=== PATIENT | female | born 1985 | race Caucasian/White ===

== ENCOUNTER 2021-02-02 16:23 | Emergency (ER) | payer BC, SELFPAY ==
[2021-02-02 16:38] VITALS: BP 125/87; PULSE 85; RESP 18; TEMP 36.7; O2SAT 98; BMI 27.8
--- NOTE | 2021-02-02 20:56 | ED_ITS ---
HPI - Headache General: Chief Complaint: Headache Stated Complaint: 30 WKS , H/A, EARS BLOCKED, GEN MALAISE Time Seen by Provider: 02/02/21 20:41 History of Present Illness: HPI Narrative: Complains about migrainous type headache started today. She has a history of migraines but has been a long time basically since she had gastric bypass surgery done. Says she has felt tired for the last couple weeks was just recently diagnosed with anemia with a hemoglobin 11.9 on lab work done on . Said her ears feel full light and sound is bothering her headache. MD elicited complaint: migraine Pertinent past history: migraines Onset (ago): hour(s) Onset description: gradually Quality & Timing: steady Exacerbating factors: none Context: occurred at rest Associated symptoms: Reports photophobia, sound sensitivity and other (30 weeks ); Deny chest pain, fever(s), nausea, rash or vomiting Treatments prior to arrival: acetaminophen Review of Systems Const: Denies: fever(s), chills or body aches Eyes: Denies: change in vision or blurry vision ENMT: Denies: throat pain or nasal congestion Card: Denies: chest pain or dyspnea on exertion Resp: Denies: dyspnea, productive cough or non-productive cough GI: Denies: abdominal pain, nausea or vomiting Musc: Denies: extremity pain Skin/Breast: Denies: rash Neuro: Reports: headache(s) Psych: Denies: anxiety or depression Fortunato/Lymph: Denies: easy bruising Physical Exam Const: COMMON NORMALS: no acute distress, average body habitus and patient oriented x3 HENMT: COMMON NORMALS: normocephalic HEAD & SCALP: normal to inspection and normocephalic FACE & SINUS: normal facial exam Eye: COMMON NORMALS: conjunctivae normal GENERAL EYE: appearance normal, both eyes and all related structures CONJUNCTIVA: Yes conjunctivae normal DIRECT OPHTHALMOSCOPY: Yes photophobia Neck/C-Spine: COMMON NORMALS: no JVD Chest: COMMONS NORMALS: normal inspection of the chest Resp: COMMON NORMALS: normal respiratory effort and clear to auscultation bilaterally AUSCULTATION: clear to auscultation bilaterally Cardio: COMMON NORMALS: no JVD, regular rate and regular rhythm RATE: regular rate RHYTHM: regular rhythm OTHER: No pedal edema noted GI: COMMON NORMALS: Normal to inspection, nondistended, normoactive bowel sounds present Extremity: COMMON NORMALS: normal to inspection and full ROM Neuro: COMMON NORMALS: patient oriented x3 and CN's II-XII intact bilaterally Course Vital Signs: Vital signs: Vital Signs Temperature 98.0 F 02/02/21 16:38 Pulse Rate 97 02/02/21 21:13 Respiratory Rate 14 02/02/21 21:13 Blood Pressure 104/76 02/02/21 21:13 Pulse Oximetry 97 02/02/21 21:13 MDM - Headache MDM Narrative: Medical decision making narrative: Discussed lab results and case with Dr. Muse patient is follow-up with provider on Tuesday. Patient is a gastric bypass patient. Patient has been having regular checkups with provider A1c is low on last lab patient had a hemoglobin 11.9 just a week ago. Patient says she just been eating mac & cheese through the . Has had good fluid intake. Discussed lab results proper diet with patient. Lab Data: Labs: Lab Results 02/02/21 02/02/21 02/02/21 Range/Units 21:05 21:10 21:10 WBC 11.4 H (4.0-10.0) 10^3/ uL RBC 4.02 L (4.1-5.3) 10^6/u L Hgb 12.7 (11.5-15.3) g/dL Hct 37.3 (37.0-47.0) % MCV 92.8 (81-99) fL MCH 31.6 (28.0-34.0) pg MCHC 34.0 (30.0-36.0) g/dL RDW 13.0 (12.1-15.1) % Plt Count 220 (130-400) 10^3/c mm MPV 9.3 (7.4-10.4) fL Neut % (Auto) 66.9 % Lymph % (Auto) 27.8 % [place] % (Auto) 3.9 % Eos % (Auto) 0.8 % Baso % (Auto) 0.2 % Neut # (Auto) 7.65 (1.8-7.7) 10^3/u L Lymph # (Auto) 3.2 (0.8-4.8) 10^3/u L [place] # (Auto) 0.5 (0.2-0.9) 10^3/u L Eos # (Auto) 0.1 (0.0-0.8) 10^3/u L Baso # (Auto) 0.0 (0.0-0.1) 10^3/u L Nucleated RBC % (a uto) 0 % Nucleated RBCs # 0.0 /100WBC Sodium 138 (136-145) mmol/L Potassium 3.2 L (3.5-5.1) mmol/L Chloride 103 (98-107) mmol/L Carbon Dioxide 24 (22-29) mmol/L Anion Gap 14.2 (5-19) BUN 9 (6-20) mg/dL Creatinine 0.4 L (0.5-0.9) mg/dL GFR Calculation 183.8 H (90-130) mL/min Glucose 137 H (65-115) mg/dL Calculated Osmolal ity 287 (285-295) mOsm/k g Calcium 9.3 (8.5-10.5) mg/dL Total Bilirubin 0.3 (0.15-1.2) mg/dL AST 10 (0-32) U/L ALT 10 (0-33) U/L Alkaline Phosphata se 71 (35-105) IU/L Total Protein 6.6 (6.6-8.7) g/dL Albumin 3.5 (3.5-5.2) g/dL Globulin 3.1 (1.3-4.6) g/dL Urine Color Yellow (Yellow) Urine Appearance Cloudy (CLEAR) Urine pH 5 (5-7) Ur Specific Gravit y 1.025 (1.005-1.030) Urine Protein Neg (Negative) Urine Glucose (UA) Norm (Normal) Urine Ketones 3+ H (Negative) Urine Blood Neg (Negative) Urine Nitrate Negative (Negative) Urine Bilirubin Neg (Negative) Urine Urobilinogen Norm (Negative) mg/dL Ur Leukocyte Zoe ase 1+ H (Negative) Urine RBC 5-10 H (0-2) /hpf Urine WBC 10-15 H (0-5) /hpf Ur Squamous Epith Cells 25-40 H (0-5) /hpf Amorphous Sediment Not Reportable Urine Bacteria 3+ H (NONE) /hpf Discharge Plan Discharge Patient Disposition: Home Clinical Impression: Hypokalemia, Urine ketones Migraine Qualifiers: Migraine type: without aura Status migrainosus presence: without status migrainosus Intractability: intractable Qualified Code(s): G43.019 - Migraine without aura, intractable, without status migrainosus UTI (urinary tract infection) Qualifiers: Urinary tract infection type: acute cystitis Hematuria presence: without hematuria Qualified Code(s): N30.00 - Acute cystitis without hematuria Condition: Stable Prescriptions: New K-Tab 20 mEq tablet extended release 20 meq PO DAILY Qty: 20 RF: 0 Macrobid 100 mg capsule 100 mg PO BID 5 Days Qty: 10 RF: 0 Discharge Orders: Discharge ED (Routine); Ordered 02/02/21 Ordered By: Chip Rae Referrals: Cyndi Messina DO [Primary Care Provider] - Discharge Diet: Usual diet Discharge Activity: Resume usual activity Patient Instructions: Urinary Tract Infection in Women (ED), Hypokalemia (ED) Activity Restrictions/Additional Instructions: Follow-up with medical provider as directed. Take medications as prescribed. Return to the ER or your medical provider if condition worsens. Please read and understand discharge instructions. If any questions ask please. Keep OB appointment with provider on Tuesday get labs rechecked. Increase carbohydrates in diet. Coding Level of Care Code ED Director Of Sales And Marketing for Chg Fwd Exam Comprehensive
[2021-02-02] MEDS: sodium chloride 0.9% 500 ML IV (21:06)
[2021-02-02] MEDS: acetaminophen 1,000 MG/100 ML PIGGYBACK 400 MG IV (21:07)
[2021-02-02 21:13] VITALS: BP 104/76; PULSE 97; RESP 14; O2SAT 97
[2021-02-02 21:25] LABS: Basophils % 0.2 %; Eosinophils # 0.1 10^3/uL (0.0-0.8); Eosinophils % 0.8 %; Hematocrit 37.3 % (37.0-47.0); Hemoglobin 12.7 g/dL (11.5-15.3); Lymphocytes # 3.2 10^3/uL (0.8-4.8); Lymphocytes % 27.8 %; Mean Corpuscular Hemoglobin 31.6 pg (28.0-34.0); Mean Corpuscular Volume 92.8 fL (81-99); Mean Platelet Volume 9.3 fL (7.4-10.4); Monocytes # 0.5 10^3/uL (0.2-0.9); Monocytes % 3.9 %; Neutrophils # 7.65 10^3/uL (1.8-7.7); Neutrophils % 66.9 %; Nucleated Red Blood Cells % 0 %; Platelet Count 220 10^3/cmm (130-400); Red Blood Count 4.02 10^6/uL (4.1-5.3); White Blood Count 11.4 10^3/uL (4.0-10.0)
[2021-02-02 21:29] LABS: Add Urine Microscopic? YES; Bilirubin Urine Neg (Negative); Blood Urine Neg (Negative); Glucose Urine UA Norm (Normal); Ketones Urine 3+ (Negative); Leukocyte Esterase Urine 1+ (Negative); Nitrate Urine Negative (Negative); Protein Urine Neg (Negative); Specific Gravity, Urine 1.025 (1.005-1.030); Urine Appearance Cloudy (CLEAR); Urine Color Yellow (Yellow); Urobilinogen Urine Norm (Negative); pH Urine 5 (5-7)
[2021-02-02 21:30] VITALS: BP 100/61; PULSE 64; RESP 14; O2SAT 99
[2021-02-02 21:30] LABS: Bacteria Urine 3+ /hpf; Squamous Epithelial Cell Urine 25-40 /hpf (0-5)
[2021-02-02 21:31] LABS: Add Urine Culture? No
--- NOTE | 2021-02-02 21:33 | PC.NURSE ---
FHT 152 on doppler
[2021-02-02 21:40] LABS: Alanine Aminotransferase 10 U/L (0-33); Albumin Level 3.5 g/dL (3.5-5.2); Alkaline Phosphatase 71 IU/L (35-105); Anion Gap 14.2 (5-19); Aspartate Amino Transferase 10 U/L (0-32); Blood Urea Nitrogen 9 mg/dL (6-20); Calcium 9.3 mg/dL (8.5-10.5); Carbon Dioxide 24 mmol/L (22-29); Chloride 103 mmol/L (98-107); Globulin 3.1 g/dL (1.3-4.6); Glomerular Filtration Rate 183.8 mL/min (90-130); Glucose 137 mg/dL (65-115); Osmolality Calculated 287 mOsm/kg (285-295); Potassium 3.2 mmol/L (3.5-5.1); Sodium 138 mmol/L (136-145); Total Bilirubin 0.3 mg/dL (0.15-1.2); Total Protein 6.6 g/dL (6.6-8.7)
[2021-02-02 22:00] VITALS: BP 106/72; PULSE 68; RESP 16; O2SAT 99
[2021-02-02] MEDS: potassium chloride ER 20 mEq Tablet PO (22:05)
[2021-02-02] MEDS: nitrofurantoin SR (BID) 100 mg Capsule PO (22:05)
[2021-02-02 22:12] VITALS: BP 102/72; PULSE 72; RESP 16; O2SAT 98
== END 2021-02-02 22:14 | disposition home or self-care (01) ==
PROVIDERS: Emergency Provider Nurse Practitioner Family; PCP Family Medicine
DX: G43.019 Migraine without aura, intractable, without status migrainosus (principal); N30.00 Acute cystitis without hematuria; E87.6 Hypokalemia
CPT/HCPCS: 80053; 81001; 85025; 96361; 96374; 99283; J7040

== ENCOUNTER 2021-04-08 19:59 | Outpatient (CLI) | payer BC, MEDICAID, SELFPAY ==
[2021-04-08 20:08] VITALS: BMI 30.4
[2021-04-08 20:15] VITALS: BP 125/76; PULSE 71; RESP 16; TEMP 36.1
[2021-04-08 21:00] VITALS: BP 103/61; PULSE 66
[2021-04-08 21:07] LABS: Nitrazine Paper, PH Negative
[2021-04-08 21:09] LABS: Basophils % 0.2 %; Eosinophils % 0.4 %; Hematocrit 36.1 % (37.0-47.0); Hemoglobin 12.5 g/dL (11.5-15.3); Lymphocytes # 3.1 10^3/uL (0.8-4.8); Mean Corpuscular HGB Conc 34.6 g/dL (30.0-36.0); Mean Corpuscular Hemoglobin 30.6 pg (28.0-34.0); Mean Corpuscular Volume 88.5 fL (81-99); Mean Platelet Volume 10.2 fL (7.4-10.4); Monocytes # 0.6 10^3/uL (0.2-0.9); Monocytes % 5.5 %; Neutrophils # 7.59 10^3/uL (1.8-7.7); Neutrophils % 66.6 %; Nucleated Red Blood Cells % 0 %; Platelet Count 226 10^3/cmm (130-400); Red Blood Count 4.08 10^6/uL (4.1-5.3); Red Cell Distribution Width 12.4 % (12.1-15.1); White Blood Count 11.4 10^3/uL (4.0-10.0)
[2021-04-08 21:20] VITALS: BP 101/64; PULSE 71
[2021-04-08 21:20] LABS: Urine Appearance Clear (CLEAR); Urine Color Yellow (Yellow); pH Urine 6 (5-7)
[2021-04-08 21:21] LABS: Add Urine Microscopic? YES; Bilirubin Urine Neg (Negative); Blood Urine Neg (Negative); Glucose Urine UA Norm (Normal); Ketones Urine 1+ (Negative); Leukocyte Esterase Urine 1+ (Negative); Nitrate Urine Negative (Negative); Protein Urine Neg (Negative); Urobilinogen Urine Norm (Negative)
[2021-04-08 21:22] LABS: Add Urine Culture? Yes; Bacteria Urine 2+ /hpf; Mucus Urine 2+ /hpf; Squamous Epithelial Cell Urine 0-4 /hpf (0-5)
[2021-04-08 21:26] LABS: Alanine Aminotransferase 6 U/L (0-33); Albumin Level 3.6 g/dL (3.5-5.2); Alkaline Phosphatase 166 IU/L (35-105); Anion Gap 15.9 (5-19); Aspartate Amino Transferase 11 U/L (0-32); Blood Urea Nitrogen 14 mg/dL (6-20); Calcium 8.8 mg/dL (8.5-10.5); Carbon Dioxide 21 mmol/L (22-29); Chloride 104 mmol/L (98-107); Globulin 2.8 g/dL (1.3-4.6); Glomerular Filtration Rate 115.1 mL/min (90-130); Glucose 93 mg/dL (65-115); Osmolality Calculated 284 mOsm/kg (285-295); Potassium 3.9 mmol/L (3.5-5.1); Sodium 137 mmol/L (136-145); Total Bilirubin 0.3 mg/dL (0.15-1.2); Total Protein 6.4 g/dL (6.6-8.7)
[2021-04-08 21:40] VITALS: BP 110/73; PULSE 67
[2021-04-08 22:25] VITALS: BP 110/73; PULSE 67; RESP 16; TEMP 36.1
== END 2021-04-08 22:25 | disposition home or self-care (01) ==
LOC: OPOB 20:06 → OBGYN 20:06
PROVIDERS: PCP Family Medicine; Visit Provider Family Medicine
DX: O26.899 Other specified pregnancy related conditions, unspecified trimester (principal); Z3A.00 Weeks of gestation of pregnancy not specified; N89.8 Other specified noninflammatory disorders of vagina
CPT/HCPCS: 36415; 59025; 80053; 81001; 83986; 85025; 87086; 99211

== ENCOUNTER → 2022-06-15 09:26 | Outpatient (BNVA) | payer BC, SELFPAY | PROVIDERS: PCP Family Medicine; Visit Provider Obstetrics & Gynecology | DX: Z36.87 Encounter for antenatal screening for uncertain dates (principal) | CPT/HCPCS: 76801 ==

== ENCOUNTER → 2022-06-21 11:50 | Outpatient (BNVA) | payer BC, SELFPAY | PROVIDERS: PCP Family Medicine; Visit Provider Obstetrics & Gynecology | DX: Z34.81 Encounter for supervision of other normal pregnancy, first trimester (principal) | CPT/HCPCS: 80307; 83036; 84315; 85027; 86762; 86803; 86850; 86900; 87086; 87340; 87491; 87591 ==

== ENCOUNTER → 2022-07-20 11:43 | Outpatient (BNVA) | payer BC, SELFPAY | PROVIDERS: PCP Family Medicine; Visit Provider Nurse Practitioner Women's Health | DX: Z34.80 Encounter for supervision of other normal pregnancy, unspecified trimester (principal) | CPT/HCPCS: 84315; 87086 ==

== ENCOUNTER 2022-07-29 09:25 | Outpatient (CLI) | payer BC, SELFPAY | END 2022-07-29 09:26 | disposition home or self-care (01) | PROVIDERS: PCP Family Medicine; Visit Provider Nurse Practitioner Women's Health | DX: O26.899 Other specified pregnancy related conditions, unspecified trimester (principal); R19.7 Diarrhea, unspecified | CPT/HCPCS: 87177; 87209 ==

== ENCOUNTER → 2022-08-16 13:31 | Outpatient (BNVA) | payer BC, SELFPAY | PROVIDERS: PCP Family Medicine; Visit Provider Obstetrics & Gynecology | DX: Z36.87 Encounter for antenatal screening for uncertain dates (principal) | CPT/HCPCS: 76805 ==

== ENCOUNTER → 2022-08-20 14:48 | Outpatient (BNVA) | payer BC, SELFPAY | PROVIDERS: PCP Family Medicine; Visit Provider Obstetrics & Gynecology | DX: O09.899 Supervision of other high risk pregnancies, unspecified trimester (principal); Z3A.00 Weeks of gestation of pregnancy not specified | CPT/HCPCS: 80053; 82607; 84315; 86592 ==

== ENCOUNTER → 2022-10-22 07:21 | Day surgery (SDC) | payer BC, MEDICAID, SELFPAY ==
[2022-10-22 07:38] VITALS: BP 114/71; PULSE 87; RESP 18; TEMP 36.3; O2SAT 99
[2022-10-22 09:37] VITALS: BP 114/71; PULSE 87; RESP 18; TEMP 36.3; O2SAT 99
== END ==
PROVIDERS: PCP Family Medicine; Visit Provider Family Medicine
DX: O36.0190 Maternal care for anti-D [Rh] antibodies, unspecified trimester, not applicable or unspecified (principal); Z3A.00 Weeks of gestation of pregnancy not specified; Z67.91 Unspecified blood type, Rh negative
CPT/HCPCS: 36415; 86850; 86900; 90384; 96372

== ENCOUNTER 2022-12-21 09:25 | Outpatient (CLI) | payer OTHER, BC, MEDICAID, SELFPAY ==
--- NOTE | 2022-12-21 09:35 | US_ITS ---
WS: [id number] LIMITED OBSTETRICAL ULTRASOUND HISTORY: FUNDAL HEIGHT LOW FOR DATES COMPARISON: 06/15/2022 and 08/16/2022 Presentation: Vertex. Cervix: Closed and normal length. Placenta: Posterior and fundal. Grade: 1 HEART: FHR of 147 BPM. measurements: BPD = 8.8 cm = 35w3d; 9th percentile HC = 32.6 cm = 36w6d; 9th percentile AC = 32.1 cm = 36w0d; 13th percentile FL = 7.1 cm = 36w4d; 17th percentile Shape of the head is mildly abnormal. There is a slightly biconcave deformity of the frontal bill americo. Referred to as a lemon sign. This can be seen with neural tube defects. This is less specific du ring late gestation. The skull shape was normal on 08/16/2022. Amniotic fluid: Qualitative amniotic fluid appears low. Single deepest pocket of 4.1 cm. No semiquant itative measurements performed. EFW: 2874 g; 34th percentile AGA by ultrasound: 36w2d JUVENAL by ultrasound: 01/16/2023 Based on the first trimester ultrasound the estimated gestational age is within 8 days. This may be a normally small for gestational age fetus. US/[place] [id number] IMPRESSION: 1. Single intrauterine gestation of 36 weeks 2 days with an EDC of 01/16/2023. 2. Estimated date of delivery is within 8 days of the first trimester determin ed JUVENAL. Biometry percentiles are low. BPD at the 9th percentile and abdominal c ircumference 13th percentile. 3. Qualitative amniotic fluid appears low. Recommend follow-up with semiquanti tative measurements (CHINTAN). Single deepest vertical pocket is 4.1 cm. Normal is greater than 5. 4. Biconcave frontal bones. Not evident on the anatomic screening survey. May be normal variant but this finding can be seen with neural tube defects.
== END 2022-12-21 09:26 | disposition home or self-care (01) ==
LOC: RAD 09:26
PROVIDERS: PCP Family Medicine; Visit Provider Family Medicine
DX: O26.843 Uterine size-date discrepancy, third trimester (principal); Z3A.36 36 weeks gestation of pregnancy
CPT/HCPCS: 76816

== ENCOUNTER 2022-12-25 22:49 | Outpatient (CLI) | payer OTHER, BC, MEDICAID, SELFPAY ==
[2022-12-25 22:45] VITALS: RESP 16; TEMP 36.2; BMI 31.6
[2022-12-25 22:58] VITALS: BP 129/87; PULSE 70
[2022-12-25 23:16] VITALS: BP 119/80; PULSE 87
[2022-12-25 23:31] VITALS: BP 116/81; PULSE 72
[2022-12-25 23:47] VITALS: BP 116/73; PULSE 67
[2022-12-26 00:15] VITALS: BP 116/73; PULSE 67; RESP 16; TEMP 36.2
== END 2022-12-26 00:15 | disposition home or self-care (01) ==
LOC: OPOB 22:50 → OBGYN 22:51
PROVIDERS: PCP Family Medicine; Visit Provider Family Medicine
DX: O36.8190 Decreased fetal movements, unspecified trimester, not applicable or unspecified (principal); Z3A.00 Weeks of gestation of pregnancy not specified; R10.2 Pelvic and perineal pain
CPT/HCPCS: 59025; 99211

== ENCOUNTER 2022-12-28 12:06 | Outpatient (CLI) | payer OTHER, BC, MEDICAID, SELFPAY ==
--- NOTE | 2022-12-28 12:13 | US_ITS ---
WS: [id number] ULTRASOUND OB LIMITED TECHNIQUE: Limited ultrasound examination of the fetus. CLINICAL INFORMATION: CHINTAN level COMPARISON: December 21, 2022 FINDINGS: Closed cervix measures 4.2 cm Single interuterine gestation. Placental location is posterior fundal. Placenta grade: 1 heart rate 144 BPM. Normal CHINTAN 8.8 cm. Largest single vertical pocket 2.8 cm Biophysical profile 8 out of 8. breathin movement: 2 tone: 2 Amniotic fluid: 2 US/US OB BPP wo NST [id number] IMPRESSION: Normal biophysical profile 8 out of 8
[2022-12-28 12:17] VITALS: BMI 31.7
[2022-12-28 12:23] VITALS: BP 124/81; PULSE 98
[2022-12-28 12:43] VITALS: BP 122/71; PULSE 80
[2022-12-28 12:49] VITALS: BP 122/71; PULSE 80; RESP 16; TEMP 36.2
== END 2022-12-28 13:00 | disposition home or self-care (01) ==
LOC: OPOB 12:07 → OBGYN 12:08
PROVIDERS: PCP Family Medicine; Visit Provider Family Medicine
DX: O26.899 Other specified pregnancy related conditions, unspecified trimester (principal); Z3A.00 Weeks of gestation of pregnancy not specified
CPT/HCPCS: 59025; 76819; 99211

== ENCOUNTER 2023-01-03 16:03 | Inpatient (IN) | payer BC, MEDICAID, SELFPAY ==
[2023-01-03] VITALS (43 sets, daily range): BP systolic 94–155; BP diastolic 51–108; PULSE 54–111; RESP 16–18; TEMP 35.7–36.7; O2SAT 83–100; BMI 31.4
[2023-01-03 16:22] LABS: Basophils % 0.1 %; Eosinophils % 0.2 %; Hematocrit 32.2 % (37.0-47.0); Hemoglobin 10.3 g/dL (11.5-15.3); Lymphocytes % 22.2 %; Mean Corpuscular Hemoglobin 25.8 pg (28.0-34.0); Mean Corpuscular Volume 80.7 fl (81-99); Mean Platelet Volume 10.2 fL (7.4-10.4); Monocytes # 0.9 10^3/uL (0.2-0.9); Monocytes % 6.3 %; Neutrophils # 9.61 10^3/uL (1.8-7.7); Neutrophils % 70.8 %; Nucleated Red Blood Cells % 0 %; Platelet Count 249 10^3/cmm (130-400); Red Blood Count 3.99 10^6/uL (4.1-5.3); Red Cell Distribution Width 13.2 % (12.1-15.1); White Blood Count 13.6 10^3/uL (4.0-10.0)
--- NOTE | 2023-01-03 16:45 | PM.OPHPUD ---
Labor & Delivery H&P Update Date of Procedure: January 03, 2023 Date H&P Performed: 01/03/23 Admission Diagnosis: IUP at 40 wks gestation Active labor Planned procedure: expectant management of active labor
--- NOTE | 2023-01-03 16:59 | ANES.PREANE2 ---
Pre-Anesthetic Assessment Height/Weight: Height 1.63 m Weight 83.007 kg Pulse BP 74 137/76 01/03/23 16:06 01/03/23 16:06 Preop Diagnosis: labor epidural Familial anesthetic complications: none Was Beta Mamta taken within 24 hours: N/A Was Clonidine taken within 24 hours: N/A Last Intake: 15:00 Social No alcohol and No tobacco Exam alert, oriented x 3, clear to auscultation bilaterally and regular rate & rhythm Airway Submandibular: within normal limits Cervical ROM: within normal limits Mallampati: Class II Dentition: full Pulmonary None reported CV/HEM None reported None reported Hepatic None reported GI Gastroesophageal Reflux Disease Metabolic None reported Musc/skel None reported Neuropsych None reported Anesthetic Plan ASA status: 2 Anesthesia: Regional (specify below) (epidural) Risk of > 500 ml blood loss (7ml/kg in children): No Medications/Allergies Home Medications Medication Instructions Recorded Confirmed Last Taken Type omeprazole 20 mg capsule,delayed 20 mg PO DAILY PRN Pain 06/21/22 12/28/22 12/28/22 History release prenat.vits,edel,oas-erbb-nrxrp 1 tab PO DAILY 06/21/22 12/28/22 12/28/22 History potassium chloride 20 mEq 20 meq PO DAILY PRN Pain 07/20/22 12/28/22 12/25/22 History tablet,extended release (K-Tab) ondansetron 4 mg disintegrating 4 mg PO Q6H PRN Nausea 10/22/22 12/28/22 12/28/22 History tablet Allergies Allergy/AdvReac Type Severity Reaction Status Date / Time aspirin Allergy Unknown Verified 12/25/22 23:49 latex Allergy ALGY-Hives Verified 12/25/22 23:49 NSAIDS (Non-Steroidal Allergy Unknown Verified 12/25/22 23:49 Anti-Inflamma Penicillins Allergy ALGY-Hives Verified 12/25/22 23:49 PFSH Anesthesia Surgical History H/O gastric bypass (06/14/19) 06/14/2019 H/O oral surgery wisdom teeth extraction Family History Grandmother Diabetes paternal and maternal Hyperlipidemia maternal and paternal Thyroid condition maternal Breast cancer maternal, 60's Colon cancer paternal, age onset unknown Mother Diabetes Hypertension Heart disease Grandfather Diabetes paternal Hyperlipidemia maternal Stroke maternal Father Hyperlipidemia Hypertension Sister Thyroid condition Denies family history of Ovarian cancer Clotting disorder Anesthesia complication Bleeding disorder Uterine cancer Social History Smoking and tobacco status: never smoked Female Reproductive History : 2 Data Anesthesia 01/03/23 16:00 Short CBC 01/03/23 Range/Units 16:00 WBC 13.6 H (4.0-10.0) 10^3/uL Hgb 10.3 L (11.5-15.3) g/dL Hct 32.2 L (37.0-47.0) % MCV 80.7 L (81-99) fl Plt Count 249 (130-400) 10^3/cmm Neut % (Auto) 70.8 % Neut # (Auto) 9.61 H (1.8-7.7) 10^3/uL Cardiac Studies: No Data to Display
--- NOTE | 2023-01-03 17:29 | ANES.PROC ---
Anesthesia Procedures Procedure/Date: 01/03/23 Epidural: Time Out Performed: Yes Consents Signed: Procedure Consent and NPO Consent Consent: requested by attending/covering physician, from patient, risks and benefits reviewed and patient agrees to proceed Lumbar Level: L3-L4 Epidural position: sitting Epidural procedure: sterile prep of area (betadine), 1% lidocaine to numb the area (3ml), 18 g needle, negative for paresthesia passed, neg for paresthesia, test dose given, 1.5% xylocaine 1:200k epi (3ml/2ml), 0.2% Ropivacaine bolus ml (5ml), placed PCEA, no systemic response, sterile dressing applied, L.U.D. no apparent complications and 0.2% Ropiavacaine @ mls/hr (13ml/hr)
[2023-01-03] MEDS: lactated ringers 1,000 ML 999 ML IV (17:30)
[2023-01-03] MEDS: oxytocin 30 UNIT/500 ML BAG IV (18:26)
--- NOTE | 2023-01-03 19:02 | P.PCNOB_ITS ---
Delivery Note: Date of delivery: January 03, 2023 Procedure: Normal spontaneous vaginal delivery Delivering Physician: Bobbi Bronson MD Estimated blood loss (mL): 200 Pre-Delivery Course: The mother had routine care at [facility]. Her was complicated by advanced maternal age and prior bariatric surgery. Due to her bariatric surgery she was unable to have the glucose tolerance test but she had a normal hemoglobin A1c. Other labs were within normal limits. Delivery: This is a 37-year-old G2, P1 at 40 weeks 0 days gestation who presented to labor and delivery in active labor. She received an epidural for pain management. She underwent artificial rupture of membranes with clear fluid. Rupture of membranes was approximately 1 hour prior to delivery. The patient's labor progressed well on its own and she had a normal spontaneous vaginal delivery of a viable female weight 2995 g, 6 pounds 10 ounces, Apgars 6 and 9 over an intact perineum. The infant was suctioned at delivery and placed on the mother's chest. The cord was clamped and cut. Cord blood was obtained. The placenta was delivered grossly intact and normal to inspection. There was a left vaginal laceration that was sutured using 3-0 chromic. Mother and were doing well after delivery. History History History 2 Term 1 0 Miscarriages/Ectopic 0 Living Children 1 Coding Level of Care Code Acute Code for Chg Fwd
[2023-01-03] MEDS: ibuprofen 800 mg tablet PO (22:31)
[2023-01-03] MEDS: benzocaine-menthol 78 gm Canister 1 SPRAY TOPICAL (22:31)
[2023-01-03] MEDS: lanolin oint 7 gm 1 APPLIC TOPICAL (22:31)
[2023-01-03] MEDS: acetaminophen 325 mg Tablet 650 MG PO (23:28)
[2023-01-04 05:15] VITALS: BP 144/76; PULSE 64; RESP 16; TEMP 36.8; O2SAT 100
[2023-01-04] MEDS: acetaminophen 325 mg Tablet 650 MG PO ×2 (06:31→12:21)
[2023-01-04 06:58] LABS: Hematocrit 33.1 % (37.0-47.0); Hemoglobin 10.6 g/dL (11.5-15.3); Mean Corpuscular Hemoglobin 26.2 pg (28.0-34.0); Mean Corpuscular Volume 81.7 fl (81-99); Mean Platelet Volume 9.6 fL (7.4-10.4); Platelet Count 208 10^3/cmm (130-400); Red Blood Count 4.05 10^6/uL (4.1-5.3); Red Cell Distribution Width 13.2 % (12.1-15.1); White Blood Count 16.5 10^3/uL (4.0-10.0)
[2023-01-04] MEDS: prenatal vitamin Capsule 1 CAP PO (09:28)
[2023-01-04] MEDS: docusate sodium 100 mg Capsule PO (09:28)
[2023-01-04 09:37] VITALS: BP 132/84; PULSE 82; RESP 14; O2SAT 98
--- NOTE | 2023-01-04 12:45 | ANE.PACU2 ---
Inpatient post-anesthesia follow up: Airway intact: Yes Vital signs: Temperature 98.3 F Pulse Rate 82 Respiratory Rate 14 Blood Pressure 132/84 Pulse Oximetry 98 Oxygen Delivery Me thod Room Air Oxygen Flow Rate Fraction of Inspir ed Oxygen Hydration adequate: Yes Nausea and vomiting: No Pain level: 2 Mental status: Baseline
--- NOTE | 2023-01-04 16:45 | PM.DCS ---
Discharge Providers Date of Admission: 01/03/23 16:03 Date of Discharge: January 04, 2023 Attending Provider at Admission: Bobbi Bronson MD Attending Provider at Discharge: Bobbi Bronson MD Primary Care Provider: Cyndi Messina DO Reason for Visit Reason for Visit: Contractions Hospital Course Hospital Course This is a 37-year-old admitted in active labor who had a normal spontaneous vaginal delivery of a viable female infant. Mother and did well after delivery. Mother was ambulating, tolerating a regular diet, had essentially no pain and very decreased vaginal bleeding. She was comfortable with discharge home. Physical Exam Narrative: Alert and oriented, sitting up in bed holding the infant, heart regular rate and rhythm, lungs clear to auscultation bilaterally, abdomen is soft and nontender, fundus is firm and U -2, extremities have no calf tenderness and no edema Discharge Data Studies Completed and Pending Laboratory Results WBC 16.5 10^3/uL (4.0-10.0) H 01/04/23 06:40 RBC 4.05 10^6/uL (4.1-5.3) L 01/04/23 06:40 Hgb 10.6 g/dL (11.5-15.3) L 01/04/23 06:40 Hct 33.1 % (37.0-47.0) L 01/04/23 06:40 MCV 81.7 fl (81-99) 01/04/23 06:40 MCH 26.2 pg (28.0-34.0) L 01/04/23 06:40 MCHC 32.0 g/dL (30.0-36.0) 01/04/23 06:40 RDW 13.2 % (12.1-15.1) 01/04/23 06:40 Plt Count 208 10^3/cmm (130-400) 01/04/23 06:40 MPV 9.6 fL (7.4-10.4) 01/04/23 06:40 Neut % (Auto) 70.8 % 01/03/23 16:00 Lymph % (Auto) 22.2 % 01/03/23 16:00 [place] % (Auto) 6.3 % 01/03/23 16:00 Eos % (Auto) 0.2 % 01/03/23 16:00 Baso % (Auto) 0.1 % 01/03/23 16:00 Neut # (Auto) 9.61 10^3/uL (1.8-7.7) H 01/03/23 16:00 Lymph # (Auto) 3.0 10^3/uL (0.8-4.8) 01/03/23 16:00 [place] # (Auto) 0.9 10^3/uL (0.2-0.9) 01/03/23 16:00 Eos # (Auto) 0.0 10^3/uL (0.0-0.8) 01/03/23 16:00 Baso # (Auto) 0.0 10^3/uL (0.0-0.1) 01/03/23 16:00 Nucleated RBC % (auto) 0 % 01/03/23 16:00 Nucleated RBCs # 0.0 /100WBC 01/03/23 16:00 Vitals Last Vital Signs Temp 98.3 F 01/04/23 05:15 Pulse 82 01/04/23 09:37 Resp 14 01/04/23 09:37 BP 132/84 01/04/23 09:37 Pulse Ox 98 01/04/23 09:37 O2 Del Method 01/04/23 09:37 Discharge Plan Discharge Patient Disposition: Home Condition: Stable Prescriptions: Continued prenat.vits,edel,vab-siwg-fnbgk Tablet 1 tab PO DAILY omeprazole 20 mg capsule,delayed release(DR/EC) 20 mg PO DAILY PRN (Reason: Pain) Label Comments: fast dissolving potassium chloride [K-Tab] 20 mEq tablet extended release 20 meq PO DAILY PRN (Reason: Pain) ondansetron 4 mg Tablet,Disintegrating 4 mg PO Q6H PRN (Reason: Nausea) Discharge Orders: Discharge Order (Routine); Ordered 01/04/23 Ordered By: Bobbi Bronson Referrals: Bobbi Bronson MD [Physician] - 1 month Discharge Diet: Usual diet Discharge Activity: Limit activity as instructed Patient Instructions: Depression (GEN), Bleeding (GEN), OB Discharge Report, OB Food/Drug Interaction Guide, OB Home Care Instructions, OB Care at Home, Opioid Safety, OB Home Care, OB Vaginal Deliveries, Abnormal Bleeding Discharge Attestations Time Spent in Discharge Care*: less than 30 min Quality Metrics Clinical Quality Measures [ No reported AMI, CVA or VTE this stay] Coding Level of Care Code Acute Code for Chg Fwd
[2023-01-04 22:14] VITALS: BP 128/79; PULSE 78; RESP 14; O2SAT 100
[2023-01-04 23:11] VITALS: BP 126/84; PULSE 76; RESP 16; TEMP 36.8
[2023-01-04 23:17] VITALS: BP 127/86; PULSE 72; RESP 16; TEMP 37
[2023-01-04 23:29] VITALS: BP 130/81; PULSE 80; RESP 15; TEMP 36.9; O2SAT 99
[2023-01-05 01:40] VITALS: BP 130/81; PULSE 80; RESP 15; TEMP 36.9; O2SAT 99
== END 2023-01-04 23:53 | disposition home or self-care (01) | DRG 806 ==
LOC: OPOB 01-04 06:55 → OBGYN 01-04 06:55
PROVIDERS: Admitting Provider Family Medicine; PCP Family Medicine; Visit Provider Family Medicine
DX: O48.0 Post-term pregnancy (principal); O71.4 Obstetric high vaginal laceration alone; Z37.0 Single live birth; Z3A.40 40 weeks gestation of pregnancy; O99.844 Bariatric surgery status complicating childbirth
CPT/HCPCS: 36415; 51702; 59025; 59409; 85025; 85027; 85460; 86850; 86900; 90384; 98960; 99211; J2590; J2795; J7120

== ENCOUNTER 2024-03-29 14:02 | Outpatient (CLI) | payer OTHER, SELFPAY ==
[2024-03-29 14:51] VITALS: BP 117/79; PULSE 82
[2024-03-29] MEDS: lactated ringers 1,000 ML 999 ML IV (15:09)
[2024-03-29 15:19] LABS: Alanine Aminotransferase 8 U/L (0-33); Albumin Level 3.4 g/dL (3.5-5.2); Alkaline Phosphatase 77 U/L (35-105); Anion Gap 15.6 (5-19); Aspartate Amino Transferase 10 U/L (0-32); Blood Urea Nitrogen 7 mg/dL (6-20); Calcium 8.5 mg/dL (8.5-10.5); Carbon Dioxide 20 mmol/L (22-29); Chloride 105 mmol/L (98-107); Creatinine Clr Calc Pharmacy 198.1989; Globulin 3.5 g/dL (1.3-4.6); Glomerular Filtration Rate 180.6 mL/min (90-130); Glucose 89 mg/dL (65-115); Osmolality Calculated 281 mOsm/kg (285-295); Potassium 3.6 mmol/L (3.5-5.1); Sodium 137 mmol/L (136-145); Total Bilirubin 0.3 mg/dL (0.15-1.2); Total Protein 6.9 g/dL (6.6-8.7)
[2024-03-29 15:27] VITALS: TEMP 36.1
[2024-03-29 15:31] VITALS: BP 110/62; PULSE 88
[2024-03-29 15:51] VITALS: BP 104/55; PULSE 85
== END 2024-03-29 16:33 | disposition home or self-care (01) ==
LOC: OPOB 14:04 → OBGYN 16:17
PROVIDERS: PCP Family Medicine; Visit Provider Family Medicine
DX: O26.899 Other specified pregnancy related conditions, unspecified trimester (principal); Z3A.00 Weeks of gestation of pregnancy not specified; R42 Dizziness and giddiness; R51.9 Headache, unspecified
CPT/HCPCS: 36415; 80053; 99211; J7120

== ENCOUNTER 2024-06-15 13:31 | Outpatient (CLI) | payer OTHER, SELFPAY ==
[2024-06-15 13:30] VITALS: RESP 24; TEMP 36.1; BMI 29.7
[2024-06-15 13:47] VITALS: BP 111/79; PULSE 81
[2024-06-15 14:07] VITALS: BP 117/65; PULSE 78
[2024-06-15 14:27] VITALS: BP 116/75; PULSE 82
[2024-06-15 14:53] VITALS: BP 116/75; PULSE 82; RESP 18
== END 2024-06-15 14:45 | disposition home or self-care (01) ==
LOC: OPOB 13:32 → OBGYN 13:33
PROVIDERS: PCP Family Medicine; Visit Provider Family Medicine
DX: O21.9 Vomiting of pregnancy, unspecified (principal); Z3A.00 Weeks of gestation of pregnancy not specified; R10.11 Right upper quadrant pain
CPT/HCPCS: 59025; 99211

== ENCOUNTER → 2024-06-17 12:01 | Outpatient (BNVA) | payer OTHER, SELFPAY | PROVIDERS: PCP Family Medicine; Visit Provider Emergency Medicine | DX: Z91.018 Allergy to other foods (principal) | CPT/HCPCS: 86003; 86008 ==

== ENCOUNTER 2024-07-13 09:21 | Oncology outpatient (recurring) (ONCR) | payer OTHER, SELFPAY ==
[2024-07-13] MEDS: rho(d) immune globulin 1,500 unit Syringe 1500 UNIT IM (09:56)
== END 2024-08-06 23:59 | disposition home or self-care (01) ==
PROVIDERS: PCP Family Medicine; Visit Provider Family Medicine
DX: Z67.11 Type A blood, Rh negative (principal); Z79.899 Other long term (current) drug therapy
CPT/HCPCS: 96372; J2790

== ENCOUNTER 2024-07-20 14:07 | Outpatient (CLI) | payer OTHER, SELFPAY ==
[2024-07-20 14:20] VITALS: BMI 30.7
[2024-07-20 14:29] VITALS: BP 115/72; PULSE 97
[2024-07-20 14:46] VITALS: BP 119/73; PULSE 100
[2024-07-20 14:52] VITALS: BP 119/73; PULSE 100
== END 2024-07-20 14:52 | disposition home or self-care (01) ==
LOC: OPOB 14:12 → OBGYN 14:13
PROVIDERS: PCP Family Medicine; Visit Provider Family Medicine
DX: O09.519 Supervision of elderly primigravida, unspecified trimester (principal); Z3A.00 Weeks of gestation of pregnancy not specified
CPT/HCPCS: 59025; 99211

== ENCOUNTER 2024-07-23 09:10 | Outpatient (CLI) | payer OTHER, SELFPAY ==
[2024-07-23] VITALS (8 sets, daily range): BP systolic 116–127; BP diastolic 72–79; PULSE 92–111; O2SAT 100
== END 2024-07-23 09:58 ==
LOC: OPOB 09:12 → OBGYN 09:13
PROVIDERS: PCP Family Medicine; Visit Provider Family Medicine
DX: O09.519 Supervision of elderly primigravida, unspecified trimester (principal); Z3A.00 Weeks of gestation of pregnancy not specified
CPT/HCPCS: 59025

== ENCOUNTER 2024-07-23 09:55 | Emergency (ER) | payer OTHER, SELFPAY ==
[2024-07-23 09:58] VITALS: BP 107/72; PULSE 95; TEMP 36.7; O2SAT 100; BMI 30.4
--- NOTE | 2024-07-23 10:43 | XRR_ITS ---
PROCEDURE INFORMATION: Exam: XR Chest Exam date and time: 07/23/2024 10:52 AM Age: 39 years old Clinical indication: Pain; Angina pectoris; Additional info: Chest pain/shield TECHNIQUE: Imaging protocol: Radiologic exam of the chest. Views: 1 view. COMPARISON: No relevant prior studies available. FINDINGS: Lungs: Unremarkable. No consolidation. Pleural spaces: Unremarkable. No pleural effusion. No pneumothorax. Heart/Mediastinum: Unremarkable. No cardiomegaly. Bones/joints: Unremarkable. XR/XR chest 1V portable [id number] IMPRESSION: No acute findings.
--- NOTE | 2024-07-23 10:44 | ECG_ITS ---
[facility] Test Date: 2024-07-23 Pat Name: Marianela Kate Department: Room: Gender: Female Manager User Interface: : 1985 Requested By: Jimena Gilman Order Number: [id number] Alexander MD: Eyad James M.D. Measurements Intervals [place] Rate: 108 P: 47 FL: 143 QRS: 19 QRSD: 84 T: 13 QT: 315 QTc: 423 Interpretive Statements SINUS TACHYCARDIA No previous ECG available for comparison Electronically Signed On 07-23-2024 16:06:21 CDT by Eyad James M.D. [email or web address]
[2024-07-23 11:06] LABS: Basophils % 0.2 %; Eosinophils # 0.1 10^3/uL (0.0-0.8); Eosinophils % 0.5 %; Hematocrit 27.2 % (36-47); Lymphocytes # 2.1 10^3/uL (0.8-4.8); Lymphocytes % 20.6 %; Mean Corpuscular HGB Conc 30.5 g/dL (30-55); Mean Corpuscular Hemoglobin 23.5 pg (27-33); Mean Corpuscular Volume 77.1 fl (85-98); Mean Platelet Volume 8.6 fL (7.4-10.4); Monocytes # 0.5 10^3/uL (0.2-0.9); Monocytes % 4.9 %; Neutrophils # 7.58 10^3/uL (1.8-7.7); Neutrophils % 73.5 %; Nucleated Red Blood Cells % 0 %; Platelet Count 212 10^3/cmm (157-399); Red Blood Count 3.53 10^6/uL (3.85-5.65); Red Cell Distribution Width 15.2 % (12.1-15.1); White Blood Count 10.31 10^3/uL (3.29-11.43)
[2024-07-23 11:24] LABS: Troponin(5th) Baseline < 6 ng/L (0-10)
[2024-07-23 11:25] LABS: Alanine Aminotransferase 6 U/L (0-33); Albumin Level 3.3 g/dL (3.5-5.2); Alkaline Phosphatase 247 U/L (35-105); Anion Gap 12.9 (5-19); Aspartate Amino Transferase 10 U/L (0-32); Blood Urea Nitrogen 7 mg/dL (6-20); Calcium 8.4 mg/dL (8.5-10.5); Carbon Dioxide 22 mmol/L (22-29); Chloride 104 mmol/L (98-107); Creatinine Clr Calc Pharmacy 131.5974; Globulin 2.4 g/dL (1.3-4.6); Glomerular Filtration Rate 112.5 mL/min (90-130); Glucose 79 mg/dL (65-115); Osmolality Calculated 277 mOsm/kg (285-295); Potassium 3.9 mmol/L (3.5-5.1); Sodium 135 mmol/L (136-145); Total Bilirubin 0.3 mg/dL (0.15-1.2); Total Protein 5.7 g/dL (6.6-8.7)
--- NOTE | 2024-07-23 13:18 | ED_ITS ---
HPI - Chest Pain 2 General: Chief Complaint: Chest Pain Stated Complaint: Chest pressure, SOB Time Seen by Provider: 07/23/24 12:08 Source: patient Mode of arrival: ambulatory Limitations: no limitations History of Present Illness: Patient is a 39-year-old female presents to ED today with complaint of chest pressure. Patient seems to place her fist around her epigastric region when showing me the area of chest pressure and discomfort. She is approximately 37 weeks . She reportedly had an NST this morning which was normal. She is feeling normal movements. She arrives with stable vital signs. She has no history of preeclampsia. She does have a history of related heartburn. She does take medications for this. She states she has not been able to eat much during this secondary to alpha gal. History of gastric bypass so eats little at baseline. Was on Carafate but no longer taking this. She states she does not feel short of breath at time of my examination. She does feel like her pain is worse with lying flat but also states this significantly worsens her heartburn. She has not noticed any significant lower extremity swelling or calf pain. MD complaint: chest pain Onset (ago): day(s) Timing of current episode: constant Pain location: epigastric Pain radiation: none Relieving factors: nothing Exacerbating factors: supine Associated symptoms: Deny abdominal pain, dyspnea, fever(s), palpitations or syncope Treatment prior to arrival: none Risk Factors: Coronary artery disease risk factors: none Thoracic aortic dissection risk factors: Pulmonary embolism risk factors: Related Data Home Medications Medication Instructions Recorded Confirmed omeprazole 20 mg capsule,delayed 20 mg PO DAILY PRN Pain 06/21/22 06/17/24 release prenat.vits,edel,iqr-uwbw-nddjt 1 tab PO DAILY 06/21/22 06/17/24 potassium chloride 20 mEq 20 meq PO DAILY PRN Pain 07/20/22 06/17/24 tablet,extended release (K-Tab) ondansetron 4 mg disintegrating 4 mg PO Q6H PRN Nausea 10/22/22 06/17/24 tablet Previous Rx's Medication Instructions Recorded azithromycin 200 mg/5 mL oral 500 mg (12.5 mL) PO DAILY 5 days 06/17/24 suspension (Zithromax) #70 mL Allergies Allergy/AdvReac Type Severity Reaction Status Date / Time Alpha-Gal Allergy Severe ADR-Vomitin Verified 07/23/24 10:11 (Yxzgwhcmk-Oxvcn-2,3-Gala g aspirin Allergy Unknown Verified 07/23/24 10:11 latex Allergy ALGY-Hives Verified 07/23/24 10:11 NSAIDS (Non-Steroidal Allergy Unknown Verified 07/23/24 10:11 Anti-Inflamma Penicillins Allergy ALGY-Hives Verified 07/23/24 10:11 Review of Systems 2 Const: Denies: fever(s), chills, body aches, fatigue or malaise ENMT: Denies: throat pain, odynophagia, nasal discharge, nasal congestion or sinus pain Card: Reports: chest pain and dyspnea on exertion; Denies: palpitations, irregular heart rhythm, edema, lightheadedness, syncope, pre-syncope, orthopnea, leg pain with exertion or acrocyanosis Resp: Reports: pain on inspiration; Denies: dyspnea, productive cough, non-productive cough, wheezing, hemoptysis or chest congestion GI: Reports: heartburn; Denies: abdominal pain : Denies: flank pain or dysuria Musc: Denies: neck pain, back pain, extremity pain, extremity swelling, joint pain or joint swelling Skin/Breast: Denies: rash Neuro: Denies: headache(s), numbness in extremities, weakness in extremities, sensory changes or dizziness PFSH ED 2 PFSH: Surgical History H/O oral surgery wisdom teeth extraction H/O gastric bypass (06/14/19) 06/14/2019 Family History Grandmother Diabetes paternal and maternal Hyperlipidemia maternal and paternal Thyroid disease maternal Breast cancer maternal, 60's Colon cancer paternal, age onset unknown Mother Diabetes Hypertension Heart disease Grandfather Diabetes paternal Hyperlipidemia maternal Stroke maternal Father Hyperlipidemia Hypertension Sister Thyroid disease Denies family history of Ovarian cancer Clotting disorder Anesthesia complication Bleeding disorder Uterine cancer Social History Smoking and tobacco/nicotine status: unknown if used tobacco/nicotine Physical Exam 2 Const: COMMON NORMALS: no acute distress, average body habitus, patient oriented x3, no limitations, alert and well nourished GENERAL APPEARANCE: c ooperative ORIENTATION/CONSCIOUSNESS: Yes awake, Yes oriented to person, Yes oriented to place and Yes oriented to time Chest: COMMONS NORMALS: normal inspection of the chest and normal palpation of entire chest wall Resp: COMMON NORMALS: normal respiratory effort and clear to auscultation bilaterally AUSCULTATION: clear to auscultation bilaterally Cardio: COMMON NORMALS: regular rate and regular rhythm RATE: regular rate RHYTHM: regular rhythm GI: INSPECTION: Yes normal to inspection and Yes gravid abdomen A USCULTATION: Yes normoactive bowel sounds PALPATION: Yes Tenderness to palpation present (GI) (somewhat tender to epigastric region), No Guarding due to palpation present (GI) and No Rigid due to palpation : COMMON NORMALS: Yes no CVA tenderness BLADDER/KIDNEY EXAM: Yes no CVA tenderness Back/Pelvis: COMMON NORMALS: no CVA tenderness Extremity: COMMON NORMALS: capillary refill normal, no clubbing, cyanosis or edema, no calf tenderness and no pedal edema GENERAL: Yes normal exam except as noted Neuro: KELLEY COMA SCALE: document GCS findings [place] coma scale eye opening: Spontaneous [place] coma scale verbal response: Orientated [place] coma scale motor response: Obey commands [place] coma scale total score: 15 COMMON NORMALS: patient oriented x3, moves all extremities, no focal motor deficits, no sensory deficits noted and gait normal SENSORIUM/ORIENTATION: Yes alert, Yes oriented to person, Yes oriented to place and Yes oriented to time Skin: COMMON NORMALS: no rashes or lesions noted GENERAL SKIN EXAM: no rashes or lesions noted Course 2 Vital Signs: Vital signs: Vital Signs Temperature 98.1 F 07/23/24 09:58 Pulse Rate 95 07/23/24 09:58 Blood Pressure 107/72 07/23/24 09:58 Pulse Oximetry 100 07/23/24 09:58 Oxygen Delivery Me thod Room Air 07/23/24 09:58 MDM - Chest Pain Medical Decision Making Patient's vital signs are stable. Her blood work overall is unremarkable. She is anemic most likely associated with anemia in . Her baseline troponin is 6 with a delta of 0. Her baseline and repeat EKGs are nonischemic. Do not suspect PE. CXR is unremarkable. I suspect GI etiology although chest wall pain or physiologic related changes possible. She has follow-up with her OB Dr. Bronson on . Return to ED precautions given. Medical Records I reviewed the patient's medical records. Lab Data I reviewed the patient's lab results. 07/23/24 11:01 07/23/24 11:01 Radiology Impressions Chest X-Ray 07/23/24 10:43 IMPRESSION: No acute findings. Laboratory Results WBC 10.31 10^3/uL (3.29-11.43) 07/23/24 11:01 RBC 3.53 10^6/uL (3.85-5.65) L 07/23/24 11:01 Hgb 8.30 g/dL (11.27-16.99) L 07/23/24 11:01 Hct 27.2 % (36-47) L 07/23/24 11:01 MCV 77.1 fl (85-98) L 07/23/24 11:01 MCH 23.5 pg (27-33) L 07/23/24 11:01 MCHC 30.5 g/dL (30-55) 07/23/24 11:01 RDW 15.2 % (12.1-15.1) H 07/23/24 11:01 Plt Count 212 10^3/cmm (157-399) 07/23/24 11:01 MPV 8.6 fL (7.4-10.4) 07/23/24 11:01 Neut % (Auto) 73.5 % 07/23/24 11:01 Lymph % (Auto) 20.6 % 07/23/24 11:01 Morrow % (Auto) 4.9 % 07/23/24 11:01 Eos % (Auto) 0.5 % 07/23/24 11:01 Baso % (Auto) 0.2 % 07/23/24 11:01 Neut # (Auto) 7.58 10^3/uL (1.8-7.7) 07/23/24 11:01 Lymph # (Auto) 2.1 10^3/uL (0.8-4.8) 07/23/24 11:01 Morrow # (Auto) 0.5 10^3/uL (0.2-0.9) 07/23/24 11:01 Eos # (Auto) 0.1 10^3/uL (0.0-0.8) 07/23/24 11:01 Baso # (Auto) 0.0 10^3/uL (0.0-0.1) 07/23/24 11:01 Nucleated RBC % (auto) 0 % 07/23/24 11:01 Nucleated RBCs # 0.0 /100WBC 07/23/24 11:01 Sodium 135 mmol/L (136-145) L 07/23/24 11:01 Potassium 3.9 mmol/L (3.5-5.1) 07/23/24 11:01 Chloride 104 mmol/L (98-107) 07/23/24 11:01 Carbon Dioxide 22 mmol/L (22-29) 07/23/24 11:01 Anion Gap 12.9 (5-19) 07/23/24 11:01 BUN 7 mg/dL (6-20) 07/23/24 11:01 Creatinine 0.6 mg/dL (0.5-0.9) 07/23/24 11:01 GFR Calculation 112.5 mL/min (90-130) 07/23/24 11:01 Glucose 79 mg/dL (65-115) 07/23/24 11:01 Calculated Osmolality 277 mOsm/kg (285-295) L 07/23/24 11:01 Calcium 8.4 mg/dL (8.5-10.5) L 07/23/24 11:01 Total Bilirubin 0.3 mg/dL (0.15-1.2) 07/23/24 11:01 AST 10 U/L (0-32) 07/23/24 11:01 ALT 6 U/L (0-33) 07/23/24 11:01 Alkaline Phosphatase 247 U/L (35-105) H 07/23/24 11:01 Troponin T Baseline < 6 ng/L (0-10) 07/23/24 11:01 Troponin T 120 Minute 6.00 ng/L (0-10) 07/23/24 13:24 Delta Troponin T 0.72419 ABS# (0-10) 07/23/24 13:24 Total Protein 5.7 g/dL (6.6-8.7) L 07/23/24 11:01 Albumin 3.3 g/dL (3.5-5.2) L 07/23/24 11:01 Globulin 2.4 g/dL (1.3-4.6) 07/23/24 11:01 All radiology interpretation(s) finalized by discharge Discharge Plan Discharge Patient Disposition: Home Clinical Impression: Chest pain during Condition: Stable Prescriptions: No Action azithromycin [Zithromax] 200 mg/5 mL suspension for reconstitution 500 mg PO DAILY 5 Days Qty: 70 0RF prenat.vits,edel,ojo-ctzz-btbwq Tablet 1 tab PO DAILY omeprazole 20 mg capsule,delayed release(DR/EC) 20 mg PO DAILY PRN (Reason: Pain) Patient Comments: fast dissolving potassium chloride [K-Tab] 20 mEq tablet extended release 20 meq PO DAILY PRN (Reason: Pain) ondansetron 4 mg Tablet,Disintegrating 4 mg PO Q6H PRN (Reason: Nausea) Discharge Orders: Discharge ED (Routine); Ordered 07/23/24 Ordered By: Jimena Gilman Referrals: Cyndi Messina DO [Primary Care Provider] - Activity Restrictions/Additional Instructions: As we discussed, please follow-up with Dr. Bronson as scheduled on . Please return to the emergency department for worsening chest pain, shortness of breath, difficulty breathing, passing out episodes, coughing up blood, severe abdominal pain, lightheadedness/dizziness, or any other concerns you may have. Coding Level of Care Code ED Trade Specialist for Yaz Goldberg
[2024-07-23] MEDS: lidocaine 2% viscous 15 ML, aluminum-mag hydrox-simethicon 30 ML, sucralfate oral liq 1 GM PO (13:43)
[2024-07-23 13:45] LABS: Troponin 5 2HR Delta 0.00001 ABS# (0-10)
[2024-07-23 15:22] VITALS: BP 110/61; PULSE 93; RESP 17; O2SAT 100
--- NOTE | 2024-07-23 16:44 | ECG_ITS ---
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 Measurements Intervals [place] Rate: 90 P: 40 [place]: 140 QRS: -6 QRSD: 89 T: -2 QT: 345 QTc: 424 Interpretive Statements SINUS RHYTHM WITH SINUS ARRHYTHMIA Compared to ECG 07/23/2024 10:03:30 Sinus tachycardia no longer present Electronically Signed On 07-23-2024 16:08:34 CDT by Eyad James M.D. [id number]
== END 2024-07-23 15:35 | disposition home or self-care (01) ==
PROVIDERS: Emergency Provider Physician Assistant; PCP Family Medicine
DX: O26.893 Other specified pregnancy related conditions, third trimester (principal); R07.9 Chest pain, unspecified; Z3A.37 37 weeks gestation of pregnancy
CPT/HCPCS: 36415; 71045; 80053; 84484; 85025; 93005; 99285

== ENCOUNTER 2024-07-27 14:35 | Outpatient (CLI) | payer OTHER, SELFPAY ==
[2024-07-27 14:40] VITALS: BMI 30.4
[2024-07-27 14:46] VITALS: BP 117/65; PULSE 99
[2024-07-27 15:00] VITALS: BP 109/65; PULSE 96
[2024-07-27 15:01] VITALS: RESP 16
[2024-07-27 15:16] VITALS: BP 106/67; PULSE 85
[2024-07-27 15:22] VITALS: BP 106/67; PULSE 85
== END 2024-07-27 15:22 | disposition home or self-care (01) ==
LOC: OPOB 14:40 → OBGYN 14:41
PROVIDERS: PCP Family Medicine; Visit Provider Family Medicine
DX: O09.519 Supervision of elderly primigravida, unspecified trimester (principal); Z3A.00 Weeks of gestation of pregnancy not specified
CPT/HCPCS: 59025; 99211

== ENCOUNTER 2024-07-30 11:40 | Outpatient (CLI) | payer OTHER, SELFPAY ==
[2024-07-30 12:01] VITALS: BP 125/67; PULSE 79
[2024-07-30 12:16] VITALS: BP 121/77; PULSE 79
[2024-07-30 12:30] VITALS: BP 107/66; PULSE 77
[2024-07-30 12:45] VITALS: BP 108/68; PULSE 84
[2024-07-30 12:54] VITALS: BP 108/68; PULSE 84
== END 2024-07-30 12:56 ==
LOC: OPOB 11:46 → OBGYN 11:47
PROVIDERS: PCP Family Medicine; Visit Provider Family Medicine
DX: O24.419 Gestational diabetes mellitus in pregnancy, unspecified control (principal); Z3A.00 Weeks of gestation of pregnancy not specified
CPT/HCPCS: 59025

== ENCOUNTER 2024-08-02 12:03 | Outpatient (CLI) | payer OTHER, SELFPAY ==
[2024-08-02] VITALS (8 sets, daily range): BP systolic 109–131; BP diastolic 66–79; PULSE 67–91; BMI 29.7
[2024-08-02 12:37] LABS: Basophils % 0.2 %; Eosinophils # 0.3 10^3/uL (0.0-0.8); Eosinophils % 2.7 %; Hematocrit 28.9 % (36-47); Lymphocytes # 2.3 10^3/uL (0.8-4.8); Lymphocytes % 21.4 %; Mean Corpuscular HGB Conc 30.4 g/dL (30-55); Mean Corpuscular Hemoglobin 22.8 pg (27-33); Mean Corpuscular Volume 74.9 fl (85-98); Mean Platelet Volume 9.1 fL (7.4-10.4); Monocytes # 0.6 10^3/uL (0.2-0.9); Monocytes % 5.2 %; Neutrophils # 7.37 10^3/uL (1.8-7.7); Neutrophils % 70.1 %; Nucleated Red Blood Cells % 0 %; Platelet Count 249 10^3/cmm (157-399); Red Blood Count 3.86 10^6/uL (3.85-5.65); Red Cell Distribution Width 15.1 % (12.1-15.1); White Blood Count 10.51 10^3/uL (3.29-11.43)
[2024-08-02 12:39] LABS: Bilirubin Urine 1+ (Negative); Blood Urine Negative (Negative); Glucose Urine UA Negative (Normal); Ketones Urine Trace (Negative); Leukocyte Esterase Urine 2+ (Negative); Nitrate Urine Negative (Negative); Protein Urine 1+ (Negative); Urine Appearance Cloudy (CLEAR); Urine Color Dark Yellow (Yellow)
[2024-08-02 12:43] LABS: Bacteria Urine 4+ /hpf; Hyaline Casts Urine 20.27 /lpf; RBC Urine 0-2 /hpf (0-2); Squamous Epithelial Cell Urine 51-100 /hpf (0-5); WBC Urine 51-100 /hpf (0-5)
[2024-08-02 12:54] LABS: Alanine Aminotransferase < 5 U/L (0-33); Albumin Level 3.4 g/dL (3.5-5.2); Alkaline Phosphatase 317 U/L (35-105); Anion Gap 15.4 (5-19); Aspartate Amino Transferase 12 U/L (0-32); Blood Urea Nitrogen 9 mg/dL (6-20); Carbon Dioxide 21 mmol/L (22-29); Chloride 104 mmol/L (98-107); Creatinine Clr Calc Pharmacy 156.1513; Globulin 3.2 g/dL (1.3-4.6); Glomerular Filtration Rate 138.8 mL/min (90-130); Glucose 86 mg/dL (65-115); Osmolality Calculated 282 mOsm/kg (285-295); Potassium 3.4 mmol/L (3.5-5.1); Sodium 137 mmol/L (136-145); Total Bilirubin 0.3 mg/dL (0.15-1.2); Total Protein 6.6 g/dL (6.6-8.7)
[2024-08-02 13:12] LABS: Specific Gravity, Urine 1.032 (1.005-1.030)
[2024-08-02 13:15] LABS: Add Urine Culture? Yes
[2024-08-02] MEDS: iron sucrose 200 MG in sodium chloride 0.9% (100 ml) 100 ML 220 MG IV (14:01)
== END 2024-08-02 14:57 | disposition home or self-care (01) ==
LOC: OPOB 12:05 → OBGYN 12:06
PROVIDERS: PCP Family Medicine; Visit Provider Family Medicine
DX: O26.899 Other specified pregnancy related conditions, unspecified trimester (principal); Z3A.00 Weeks of gestation of pregnancy not specified
CPT/HCPCS: 36415; 59025; 80053; 80503; 81001; 85025; 86850; 86870; 86900; 86920; 87086; 99211; J1756

== ENCOUNTER 2024-08-05 22:42 | Inpatient (IN) | payer OTHER, SELFPAY ==
[2024-08-05 20:54] VITALS: BMI 30.4
[2024-08-05 21:03] VITALS: BP 117/81; PULSE 76
[2024-08-05 21:22] VITALS: BP 116/75; PULSE 69
[2024-08-05 22:29] VITALS: BP 132/70; PULSE 71
[2024-08-05] MEDS: lactated ringers 1,000 ML 999 ML IV (23:00)
[2024-08-05 23:04] LABS: Basophils % 0.2 %; Eosinophils # 0.1 10^3/uL (0.0-0.8); Eosinophils % 0.4 %; Hematocrit 28.3 % (36-47); Lymphocytes # 3.6 10^3/uL (0.8-4.8); Lymphocytes % 26.6 %; Mean Corpuscular HGB Conc 31.4 g/dL (30-55); Mean Corpuscular Hemoglobin 23.3 pg (27-33); Mean Corpuscular Volume 74.1 fl (85-98); Mean Platelet Volume 9.5 fL (7.4-10.4); Monocytes # 0.7 10^3/uL (0.2-0.9); Monocytes % 4.9 %; Neutrophils # 9.06 10^3/uL (1.8-7.7); Neutrophils % 67.4 %; Nucleated Red Blood Cells % 0.1 %; Platelet Count 263 10^3/cmm (157-399); Red Blood Count 3.82 10^6/uL (3.85-5.65); Red Cell Distribution Width 15.4 % (12.1-15.1); White Blood Count 13.44 10^3/uL (3.29-11.43)
[2024-08-05 23:50] VITALS: PULSE 120; O2SAT 93
[2024-08-05 23:55] VITALS: PULSE 95; O2SAT 100
[2024-08-05 23:59] VITALS: PULSE 111; O2SAT 93
[2024-08-06] VITALS (24 sets, daily range): BP systolic 97–136; BP diastolic 58–84; PULSE 55–96; RESP 14–18; TEMP 36.5–36.7; O2SAT 97–100
--- NOTE | 2024-08-06 00:17 | P.ANESASSM_ITS ---
Pre-Anesthetic Assessment Height/Weight: Height 1.63 m Weight 80.286 kg Pulse BP Pulse Ox 111 H 132/70 93 08/05/24 23:59 08/05/24 22:29 08/05/24 23:59 Preop Diagnosis: IUP Labor Epidural Familial anesthetic complications: None Was Beta Mamta taken within 24 hours: N/A Was Clonidine taken within 24 hours: N/A Last intake: 08/06/24 1800 MEAL CLEARS- CURRENT Social No alcohol and No tobacco Exam alert, oriented x 3 and clear to auscultation bilaterally Airway Submandibular: within normal limits Cervical ROM: within normal limits Mallampati: Class II Dentition: full History/ROS No significant history except as noted CV/HEM None reported None reported Hepatic None reported GI Gastroesophageal Reflux Disease Metabolic None reported Musc/skel None reported Neuropsych None reported Anesthetic Plan ASA status: 2 Anesthesia: Regional (specify below) Other: Labor Epidural, alpha gal noted patient educated on risk. Medications/Allergies Home Medications Medication Instructions Recorded Confirmed Last Taken Type prenat.vits,edel,wcy-hhlw-oxibl 1 tab PO DAILY 06/21/22 08/05/24 08/05/24 History epinephrine 0.3 mg/0.3 mL 0.3 ml IM PRN PRN Allergic Reaction 08/05/24 08/05/24 Unknown History injection, auto-injector escitalopram oxalate 5 mg tablet 5 mg PO DAILY 08/05/24 08/05/24 08/05/24 History famotidine 20 mg tablet 20 mg PO DAILY 08/05/24 08/05/24 08/05/24 History Allergies Allergy/AdvReac Type Severity Reaction Status Date / Time Alpha-Gal Allergy Severe ADR-Vomitin Verified 08/05/24 20:55 (Swpjmdmdx-Vfwrk-2,3-Gala g aspirin Allergy Unknown Verified 08/05/24 20:55 latex Allergy ALGY-Hives Verified 08/05/24 20:55 NSAIDS (Non-Steroidal Allergy Unknown Verified 08/05/24 20:55 Anti-Inflamma Penicillins Allergy ALGY-Hives Verified 08/05/24 20:55 Current Medications Generic Name Dose Route Start Last Admin Trade Name Freq PRN Reason Stop Dose Admin Lactated Ringer's 1,000 mls @ 999 mls/hr 08/05/24 22:36 08/05/24 23:00 Lactated Ringers IV 999 mls/hr .Q1H1M PRN Administration See label comments Vancomycin HCl 1,500 mg/ 250 mls @ 0 mls/hr 08/05/24 23:00 08/05/24 23:33 Sodium Chloride [id number] 200 mls/hr Q8H ANDREAS Administration As Directed [facility] Anesthesia Surgical History H/O oral surgery wisdom teeth extraction H/O gastric bypass (06/14/19) 06/14/2019 Family History Grandmother Diabetes paternal and maternal Hyperlipidemia maternal and paternal Thyroid disease maternal Breast cancer maternal, 60's Colon cancer paternal, age onset unknown Mother Diabetes Hypertension Heart disease Grandfather Diabetes paternal Hyperlipidemia maternal Stroke maternal Father Hyperlipidemia Hypertension Sister Thyroid disease Denies family history of Ovarian cancer Clotting disorder Anesthesia complication Bleeding disorder Uterine cancer Social History Smoking and tobacco/nicotine status: unknown if used tobacco/nicotine Female Reproductive History : 3 Data Anesthesia 08/05/24 22:53 Short CBC 08/05/24 Range/Units 22:53 WBC 13.44 H (3.29-11.43) 10^3/uL Hgb 8.90 L (11.27-16.99) g/dL Hct 28.3 L (36-47) % MCV 74.1 L (85-98) fl Plt Count 263 (157-399) 10^3/cmm Neut % (Auto) 67.4 % Neut # (Auto) 9.06 H (1.8-7.7) 10^3/uL Cardiac Studies: 2 No Data to Display Anesthesia Procedures Epidural Time Out Performed: Yes Consents Signed: Procedure Consent Consent: from patient, risks and benefits reviewed and patient agrees to proceed Lumbar Level: L3-L4 Epidural position: sitting Epidural procedure: sterile prep of area, 1% lidocaine to numb the area, negative for paresthesia passed, test dose given, 1.5% xylocaine 1:200k epi, placed PCEA, no systemic response, sterile dressing applied, L.U.D. no apparent complications and 0.2% Ropiavacaine @ mls/hr (10) Additional Comments: KIYA @ 6.5cm , first attempt, - heme -csf. catheter threaded to 12cm with ease. Test dose given. Patient began having a BM and screaming she is coming sterile dressing applied patient laid back in bed and delivered. delivery by Chapis LITTLE at [facility] DrNathalia arrived shortly after delivery.
--- NOTE | 2024-08-06 00:59 | PM.OPHPUD ---
Labor & Delivery H&P Update Date of Procedure: August 06, 2024 Date H&P Performed: 01/03/23 Admission Diagnosis: IUP at 39 weeks 1 day gestation Active labor Preop diagnosis: IUP Planned procedure: Expectant management of labor and delivery
--- NOTE | 2024-08-06 01:01 | P.PCNOB_ITS ---
Delivery Note: Date of delivery: August 06, 2024 Procedure: Normal spontaneous vaginal delivery Estimated blood loss (mL): 200 Pre-Delivery Course: Mother had routine care at [facility]. She was blood type a negative, antibody negative, hepatitis B nonreactive, hepatitis C nonreactive, HIV nonreactive, rubella immune, GC chlamydia negative, RPR nonreactive, UDS negative, Q low risk, she passed her glucose tolerance test, she was GBS positive. Note mother did receive RhoGAM during the first week of July. It was delayed because she had strong opinions about a reaction with her alpha gal allergy. Delivery: This is a 39-year-old G3,now P3 at 39 weeks 1 daysgestation who presented to labor and delivery in active labor. The patient desired to get an epidural for pain management and was 8 cm before sitting up for the epidural -I was notified by nursing and started for the hospital. While she was sitting up receiving the test dose for the epidural she said the baby was coming and had a normal spontaneous vaginal delivery of a viable female infant. Rupture membranes was at time of delivery with clear fluid. Nursing staff delivered the infant in the bed and placed the on the mother's chest. When I presented the was being dried on the mother's chest. Apgars 7 and 8, weight 2900 g. I clamped and cut the cord. I obtained cord blood. The placenta was delivered grossly intact and normal to inspection. There were no lacerations. Mother was doing well after delivery. History History History 2 Term 1 0 Miscarriages/Ectopic 0 Living Children 1 A&P Assessment and plan (1) Normal spontaneous vaginal delivery: (2) Consultation for sterilization: Throughout her she was positive about getting a bilateral tubal ligation. She desires to proceed with the tubal ligation. It will be scheduled for later today. Coding Level of Care Code Acute Code for Chg Fwd Diagnoses Normal spontaneous vaginal delivery O80 Consultation for sterilization Z30.09
[2024-08-06] MEDS: ketorolac 30 mg/mL INJ IVP ×2 (01:04→16:38)
--- NOTE | 2024-08-06 01:27 | P.HP_ITS ---
Providers/Chief Complaint 2 Admitting Physician: Bobbi Bronson MD Primary Care Provider: Cyndi Messina DO Chief Complaint: Contractions History of Present Illness Marianela Kate is a 39 year old female G3 now P3 who just had a normal spontaneous vaginal delivery of a viable female . The patient desires to undergo permanent surgical sterilization with a bilateral tubal ligation. This will be scheduled for later today. Medications/Allergies Home Medications Medication Instructions Recorded Confirmed Last Taken Type prenat.vits,edel,slw-pqaz-tasnt 1 tab PO DAILY 06/21/22 08/05/24 08/05/24 History epinephrine 0.3 mg/0.3 mL 0.3 ml IM PRN PRN Allergic Reaction 08/05/24 08/05/24 Unknown History injection, auto-injector escitalopram oxalate 5 mg tablet 5 mg PO DAILY 08/05/24 08/05/24 08/05/24 History famotidine 20 mg tablet 20 mg PO DAILY 08/05/24 08/05/24 08/05/24 History Allergies Allergy/AdvReac Type Severity Reaction Status Date / Time Alpha-Gal Allergy Severe ADR-Vomitin Verified 08/05/24 20:55 (Sglulkwxs-Kdjcl-3,3-Gala g aspirin Allergy Unknown Verified 08/05/24 20:55 latex Allergy ALGY-Hives Verified 08/05/24 20:55 NSAIDS (Non-Steroidal Allergy Unknown Verified 08/05/24 20:55 Anti-Inflamma Penicillins Allergy ALGY-Hives Verified 08/05/24 20:55 PFSH Acute 2 PFSH: Surgical History H/O oral surgery wisdom teeth extraction H/O gastric bypass (06/14/19) 06/14/2019 Family History Grandmother Diabetes paternal and maternal Hyperlipidemia maternal and paternal Thyroid disease maternal Breast cancer maternal, 60's Colon cancer paternal, age onset unknown Mother Diabetes Hypertension Heart disease Grandfather Diabetes paternal Hyperlipidemia maternal Stroke maternal Father Hyperlipidemia Hypertension Sister Thyroid disease Denies family history of Ovarian cancer Clotting disorder Anesthesia complication Bleeding disorder Uterine cancer Social History Smoking and tobacco/nicotine status: unknown if used tobacco/nicotine Female Reproductive History: : 3 Vitals/I&O/Wt Last Vital Signs Pulse 59 L 08/06/24 01:11 BP 125/80 08/06/24 01:11 Pulse Ox 93 08/05/24 23:59 Weight last 48 hrs Weight 80.286 kg Weight 80.286 kg Physical Exam 2 Narrative: Alert and oriented, resting in bed just after normal spontaneous vaginal delivery, heart regular rate and rhythm, lungs clear to auscultation bilaterally, abdomen is soft and fundus is firm, vaginal bleeding is mild, extremities have no calf tenderness and no edema Data 08/05/24 22:53 A&P Assessment and plan (1) Consultation for sterilization: She has previously signed the Medicaid form during . We will schedule this for later today. (2) Normal spontaneous vaginal delivery: Routine care Attestations 2 Medical Necessity Statement*: Routine surgery and care. Coding Level of Care Code Acute Code for Chg Fwd Diagnoses Consultation for sterilization Z30.09 Normal spontaneous vaginal delivery O80
--- NOTE | 2024-08-06 06:40 | PC.NURSE ---
Mother presented to triage at 2046 complaining of contractions. 1st cervical exam 2.5/40/-4 posterior moderate category 1 strip contraction every 1.5-[address] Bronson called at 2124 orders received to allow patient to walk for one hour and recheck cervix. repeat cervical exam at 2229 4/60/-3 soft posterior contraction every 1.5-3 category 1 strip contractions palpating mild. Dr Bronson called at 2230 advised of cervical change order received for admission vancomycin for GBS protocol and get epidural. 2299 LR bolus for epidural. 2326 anesthesia called for epidural. 2342 family member to nurses desk states patient needs to have a bowel movement cervical exam at this time 6/50/-3 soft mid position. Anesthesia to the room at 2344 patient set up for epidural procedure. Patient begins to grunt and bear down with contractions, cervical exam preformed 2350 8/90/-1 Dr. Bronson called 2350 and advised patient sitting up for epidural 8cm 90% 0 station bearing down and grunting. Patient positioned for epidural. patient states she's coming SVE completed patient found to be 10/[address] Bronson called at 0000 states she is in route to the hospital. test dose done at 0002. anesthesia leaves room to get lidocaine to dose epidural. patient being coached to pant. Large crown followed by delivery of head. Encouraged mother to push. baby delivered in LASHAE position anterior left shoulder body cord x1. baby immediately placed on warmed blanket on mothers chest dried and stimulated. Dr Bronson arrived in the room at 0006. Malinda RN deleeing baby on mothers abdomen. Dr Bronson immediately clamps and cuts umbilical cord and is taken to warm by Malinda RN. SpO2 below target range. APGARS 7 & 8. CPAP initiated and titrated up to 40% Fio2 by BLILE at 5MOL. At 15MOL FiO2 decreased to 30. Fio2 decreased to 25 at 17MOL SpO2 98%. Blowby initiated at 18MOL. FiO2 decreased to 21% at 19min SpO2 100%. CPAP initiated again at [id number] of life. SpO2 89%. CPAP 21% FIo2 PEEP5. Baby taken to nursery for CPAP via HARIKA Cannula.
--- NOTE | 2024-08-06 07:00 | ANE.PACU2 ---
Inpatient post-anesthesia follow up: Airway intact: Yes Vital signs: Temperature 97.9 F Pulse Rate 70 Respiratory Rate 16 Blood Pressure 111/77 Pulse Oximetry 99 Oxygen Delivery Me thod Room Air Oxygen Flow Rate Fraction of Inspir ed Oxygen Hydration adequate: Yes Nausea and vomiting: No Pain level: 1 Mental status: Baseline Epidural Start/End: Epidural Start Date: 08/05/24 Epidural Start Time: 23:30 Epidural End Date: 08/06/24 Epidural End Time: 00:34
--- NOTE | 2024-08-06 09:14 | PC.NURSE ---
Pt c/o acid reflux. Dr Anderson with anesthesia contacted as pt is scheduled for tubal ligation at 1200. Orders for Pepcid 20mg IVP now.
[2024-08-06] MEDS: famotidine 20 mg/2 mL INJ IVP (09:29)
--- NOTE | 2024-08-06 09:43 | P.ANESUD_ITS ---
Pre-Anesthetic Update Pre-Anesthetic Assessment: Date of Surgery/Procedure: 08/06/24 Preop Abi gnosis: IUP Proposed Procedure: Operation Date: 08/06/24 12:10 Proposed Procedures p Post Bilateral Tubal Ligation(Not Applicable) - Bobbi Bronson MD Changes from Pre-Anesthetic Assessment: Patient tolerated epidural placement just fine. Plans for tubal today. No changes in medical history. Patient reporting heartburn symptoms today, given Pepcid. Labs Last 48hrs: Short CBC 08/05/24 Range/Units 22:53 WBC 13.44 H (3.29-11.43) 10^ 3/uL Hgb 8.90 L (11.27-16.99) g/ dL Hct 28.3 L (36-47) % MCV 74.1 L (85-98) fl Plt Count 263 (157-399) 10^3/c mm Neut % (Auto) 67.4 % Neut # (Auto) 9.06 H (1.8-7.7) 10^3/u L Blood Bank 08/05/24 22:53 Blood Type A Negative Rho(D) Type Rh negative Antibody Screen Positive Vitals: Temperature 98.1 F 08/06/24 06:29 Temperature Source Oral 08/06/24 06:29 Pulse Rate 55 L 08/06/24 06:29 Pulse Rhythm Regular 08/05/24 22:53 Pulse Strength 3+ Normal 08/05/24 22:53 Respiratory Rate 14 08/06/24 06:29 Respiratory Effort Spontaneous, Non- Labored, Easy 08/05/24 22:53 Respiratory Depth Normal 08/05/24 22:53 Respiratory Patter n Normal 08/05/24 22:53 Blood Pressure 97/63 08/06/24 06:29 Blood Pressure Kath n 74 08/06/24 06:29 Blood Pressure Pos ition Semi Fowlers 08/06/24 06:29 Pulse Oximetry 99 08/06/24 06:29 Oxygen Delivery Me thod Room Air 08/06/24 06:29 Cardiac Studies: No Data to Display
[2024-08-06] MEDS: citric acid-sodium citrate 30 mL UDC PO (11:11)
[2024-08-06] MEDS: metoclopramide 5 mg/mL SDV 2 mL 10 MG IVP (11:11)
[2024-08-06] MEDS: lactated ringers 1,000 ML 999 ML IV (11:12)
[2024-08-06] MEDS: clindamycin 900 MG/50 ML PREMIX 100 MG IV (12:21)
[2024-08-06] MEDS: gentamicin inj 120 MG in sodium chloride 0.9% (100 ml) 100 ML 103 MG IV (12:22)
[2024-08-06] MEDS: lidocaine-epi 1% 20 mL INJ INJECTION (12:23)
--- NOTE | 2024-08-06 12:35 | PC.NURSE ---
To OB OR1 for post tubal ligation
--- NOTE | 2024-08-06 13:02 | PM.OP ---
Operative Report Date of procedure: August 06, 2024 Pre-op diagnosis: Desired permanent surgical sterilization Post-op diagnosis: Same Procedure done: Bilateral tubal ligation Pathology: Segments of right and left fallopian tubes Surgeon: Bobbi Bronson MD Anesthesia: General Estimated blood loss: 2 mL IV fluids (mL): 600 Complications: None Procedure: After informed consent the patient was taken to the OR where general anesthesia was administered. She was prepped and draped in normal sterile fashion in dorsal supine position. A curvilinear infraumbilical incision was made and carried through to the underlying layer of fascia bluntly using a hemostat. The fascia was grasped with Allis clamps and the fascia was entered sharply using the Metzenbaums. The peritoneum was then grasped with Allis clamps and entered sharply using the Metzenbaums. The left fallopian tube was grasped with a Tillman and brought into the operative field, fimbria were identified. A distal portion of the tube was ligated and excised. Tubal ostia were visualized. Segment was sent to pathology. The cut portions of the tube were coagulated using the Bovie and then returned to the abdomen. The right fallopian tube was then grasped with a Prakash and brought into the operative field, fimbria were identified. A distal portion of the tube was ligated and excised. Tubal ostia were visualized. Segment of the tube was sent to pathology. The cut portions of the tube were coagulated using the Bovie. After hemostasis was verified the cut portions of the tube were then returned to the abdomen. The fascia was then reapproximated using 0 Vicryl in a running fashion. The skin was then reapproximated using 4-0 Vicryl in a running fashion. Sponge instrument and needle counts were correct. Patient was awakened in the OR and went to recovery in stable condition.
--- NOTE | 2024-08-06 13:45 | PC.NURSE ---
Pt back to OB 8 from OR via bed. Instructed not to get up without assistance. Ice chips provided. VSS
[2024-08-06] MEDS: HYDROcodone-acetaminophen 5-325 mg Tablet PO (14:24)
--- NOTE | 2024-08-06 16:30 | PC.NURSE ---
pt c/o abdominal pain. already had norco as ordered. dr rich called, order for toradol 30mg IVP x1 dose now.
[2024-08-06] MEDS: famotidine 20 mg Tablet PO (21:43)
[2024-08-07 02:00] VITALS: BP 109/70; PULSE 67; RESP 15; O2SAT 98
[2024-08-07 02:29] LABS: Hematocrit 21.6 % (36-47); Mean Corpuscular HGB Conc 30.6 g/dL (30-55); Mean Corpuscular Hemoglobin 23.7 pg (27-33); Mean Corpuscular Volume 77.7 fl (85-98); Mean Platelet Volume 9.9 fL (7.4-10.4); Platelet Count 193 10^3/cmm (157-399); Red Blood Count 2.78 10^6/uL (3.85-5.65); Red Cell Distribution Width 15.2 % (12.1-15.1); White Blood Count 12.41 10^3/uL (3.29-11.43)
[2024-08-07 08:21] VITALS: BP 128/76; PULSE 68; RESP 16; TEMP 36.7
[2024-08-07 10:00] VITALS: BP 113/74; PULSE 66; RESP 16; TEMP 36.7; O2SAT 98
--- NOTE | 2024-08-07 12:31 | PM.DCS ---
Discharge Providers Date of Admission: 08/05/24 22:42 Date of Discharge: August 07, 2024 Attending Provider at Admission: Bobbi Bronson MD Attending Provider at Discharge: Bobbi Bronson MD Primary Care Provider: Cyndi Messina DO Diagnoses at Discharge Discharge Diagnosis (1) Consultation for sterilization: Status: Acute (2) Normal spontaneous vaginal delivery: Status: Acute Reason for Visit Reason for Visit: Contractions Hospital Course Hospital Course This is a 39-year-old G3 now P3 who had a normal spontaneous vaginal delivery of a viable female . Mother underwent a bilateral tubal ligation on day #0-1. She is doing well. She has minimal vaginal bleeding, she is ambulating, tolerating a regular diet, and is comfortable with discharge home. Physical Exam Narrative: Alert and oriented, sitting on the edge of the bed, heart regular rate and rhythm, lungs clear to auscultation bilaterally, abdomen is soft with appropriate postoperative tenderness, extremities have trace edema but no calf tenderness. Discharge Data Studies Completed and Pending Pending at discharge Category Date Time Status Pathology: Surgical [PTH] Routine Pth 08/06/24 14:20 Received Laboratory Results WBC 12.41 10^3/uL (3.29-11.43) H 08/07/24 01:47 RBC 2.78 10^6/uL (3.85-5.65) L 08/07/24 01:47 Hgb 6.60 g/dL (11.27-16.99) L 08/07/24 01:47 Hct 21.6 % (36-47) L 08/07/24 01:47 MCV 77.7 fl (85-98) L 08/07/24 01:47 MCH 23.7 pg (27-33) L 08/07/24 01:47 MCHC 30.6 g/dL (30-55) 08/07/24 01:47 RDW 15.2 % (12.1-15.1) H 08/07/24 01:47 Plt Count 193 10^3/cmm (157-399) 08/07/24 01:47 MPV 9.9 fL (7.4-10.4) 08/07/24 01:47 Neut % (Auto) 67.4 % 08/05/24 22:53 Lymph % (Auto) 26.6 % 08/05/24 22:53 [place] % (Auto) 4.9 % 08/05/24 22:53 Eos % (Auto) 0.4 % 08/05/24 22:53 Baso % (Auto) 0.2 % 08/05/24 22:53 Neut # (Auto) 9.06 10^3/uL (1.8-7.7) H 08/05/24 22:53 Lymph # (Auto) 3.6 10^3/uL (0.8-4.8) 08/05/24 22:53 [place] # (Auto) 0.7 10^3/uL (0.2-0.9) 08/05/24 22:53 Eos # (Auto) 0.1 10^3/uL (0.0-0.8) 08/05/24 22:53 Baso # (Auto) 0.0 10^3/uL (0.0-0.1) 08/05/24 22:53 Nucleated RBC % (auto) 0.1 % 08/05/24:53 Nucleated RBCs # 0.0 /100WBC 08/05/24 22:53 Blood Type A Negative 08/05/24 22:53 Rho(D) Type Rh negative 08/05/24 22:53 Antibody Screen Positive 08/05/24 22:53 Antibody Identification Anti-D 08/05/24 22:53 Screen Negative (Negative) 08/07/24 01:47 Vitals Last Vital Signs Temp 98.1 F 08/07/24 10:00 Pulse 66 08/07/24 10:00 Resp 16 08/07/24 10:00 BP 113/74 08/07/24 10:00 Pulse Ox 98 08/07/24 10:00 O2 Del Method Room Air 08/07/24 10:00 Discharge Plan Discharge Patient Disposition: Home Condition: Stable Prescriptions: Continued prenat.vits,edel,[id number] Tablet 1 tab PO DAILY famotidine 20 mg tablet 20 mg PO DAILY epinephrine 0.3 mg/0.3 mL auto-injector 0.3 ml IM PRN PRN (Reason: Allergic Reaction) escitalopram oxalate 5 mg tablet 5 mg PO DAILY Discharge Orders: Discharge Order (Routine); Ordered 08/07/24 Ordered By: Bobbi Bronson Referrals: Bobbi Bronson MD [Physician] - 1 week Discharge Diet: Usual diet Discharge Activity: Limit activity as instructed Patient Instructions: Depression (DC), Opioid Safety (DC), Preeclampsia and Eclampsia After Delivery (GEN), Tubal Ligation (DC), Hemorrhage (DC), OB Discharge Report, OB Food/Drug Interaction Guide, OB Care at Home, Opioid Safety, OB Vaginal Deliveries, Abnormal Bleeding Activity Restrictions/Additional Instructions: Nothing per vagina for 6 weeks Discharge Attestations Time Spent in Discharge Care*: less than 30 min Quality Metrics Clinical Quality Measures [ No reported AMI, CVA or VTE this stay] Coding Level of Care Code Acute Code for Chg Fwd Diagnoses Consultation for sterilization Z30.09 Normal spontaneous vaginal delivery O80
[2024-08-07 14:15] VITALS: BP 120/75; PULSE 68; RESP 14; TEMP 36.9; O2SAT 99
== END 2024-08-07 13:30 | disposition home or self-care (01) | DRG 798 ==
LOC: OPOB 22:43 → OBGYN 22:43
PROVIDERS: Admitting Provider Family Medicine; PCP Family Medicine; Visit Provider Family Medicine
PROC: 10E0XZZ Delivery of Products of Conception, External Approach (ICD-10-PCS; CPT 58605; principal; 2024-08-06 12:00)
DX: O99.824 Streptococcus B carrier state complicating childbirth (principal); Z37.0 Single live birth; Z3A.39 39 weeks gestation of pregnancy; Z30.2 Encounter for sterilization
CPT/HCPCS: 36415; 59025; 59409; 85025; 85027; 85460; 86850; 86870; 86900; 88302; 90384; 96374; 98960; 99211; J1100; J1580; J1885; J2405; J2704; J2765; J3010; J3370; J3490; J7050; J7120